=== PATIENT | male | born 1945 | race Caucasian/White ===

== ENCOUNTER 2016-08-04 06:10 | Day surgery (SDC) | payer MEDICARE ==
--- NOTE | ~2016-08-04 | EGD ---
EGD REPORT [facility] [address] [address] NAME: PRIYANKA LOPES : [birth year] STATUS : [place] [facility] [place] PAT#: [id number] AGE: 70 ADM/REG DATE : 08/04/16 MR#: [id number] REPORT SERV DATE: 08/04/16 DICTATED BY: KENDALL HERNANDEZ III DATE: 08/04/16 REPORT STATUS : Draft [facility]ANS[facility]IBED [facility]: [facility] DATE: 08/04/16 Endoscopy Center Patient Name: Priyanka Lopes Date of : 1945 Attending MD: KENDALL HERNANDEZ III, MD Procedure Date No Time: 08/04/2016 Procedure: Colonoscopy Indications: Iron deficiency anemia Referring MD: ROSITA HDZ Medicines: Propofol per Anesthesia Complications: No immediate complications. Procedure: Pre-Anesthesia Assessment: - ASA Grade Assessment: III - A patient with severe systemic disease. After I obtained informed consent, the scope was passed under direct vision. Throughout the procedure, the patient's blood pressure, pulse, and oxygen saturations were monitored continuously. The PCF [id number] was introduced through the anus and advanced to the cecum, identified by appendiceal orifice and ileocecal valve. The colonoscopy was performed with ease. The patient tolerated the procedure well. The quality of the bowel preparation was good. Findings: Four sessile polyps were found in the transverse colon. The polyps were 4 to 10 mm in size. These polyps were removed with a hot snare. Resection and retrieval were complete. These polyps were removed with a cold snare. Resection and retrieval were complete. These polyps were removed with a cold biopsy forceps. Resection and retrieval were complete for 3/4 polyps. A sessile polyp was found in the sigmoid colon. The polyp was 6 mm in size. The polyp was removed with a cold snare. Resection and retrieval were complete. Multiple diverticula were found in the sigmoid colon. External and internal hemorrhoids were found during retroflexion. Impression: - Four 4 to 10 mm polyps in the transverse colon. Resected and retrieved. - One 6 mm polyp in the sigmoid colon. Resected and retrieved. - Diverticulosis in the sigmoid colon. - External and internal hemorrhoids. Recommendation: - Patient has a contact number available for EGD REPORT [address] [address] NAME: PRIYANKA LOPES : [birth year] STATUS : [place] [facility] [place] PAT#: [id number] AGE: 70 ADM/REG DATE : 08/04/16 MR#: [id number] REPORT SERV DATE: 08/04/16 DICTATED BY: KENDALL HERNANDEZ III DATE: 08/04/16 REPORT STATUS : Draft TRANSCRIBED BY: [facility] DATE: 08/04/16 emergencies. The signs and symptoms of potential delayed complications were discussed with the patient. Return to normal activities tomorrow. Written discharge instructions were provided to the patient. - Discharge patient to home. - High fiber diet indefinitely. - Resume Xarelto (rivaroxaban) at prior dose in 3 days. - Await pathology results. Procedure Code(s): --- Professional --- 23195, Colonoscopy, flexible, proximal to splenic flexure; with removal of tumor(s), polyp(s), or other lesion(s) by snare technique Diagnosis Code(s): --- Professional --- D12.5, Benign neoplasm of sigmoid colon D12.3, Benign neoplasm of transverse colon K64.8, Other hemorrhoids K57.30, Diverticulosis of large intestine without perforation or abscess without bleeding D50.9, Iron deficiency anemia, unspecified CPT copyright 2013 [employer]. All rights reserved. The codes documented in this report are preliminary and upon bus greaser review may be revised to meet current compliance requirements. KENDALL HERNANDEZ III, MD 08/04/2016 8:12 AM This report has been signed electronically. Number of Addenda: 0 Note Initiated On: 08/04/2016 7:41 AM Scope Withdrawal Time 0 hours 13 minutes 1 second [id number] [place] [address]
--- NOTE | ~2016-08-04 | EGD ---
EGD REPORT [facility] [address] [address] NAME: PRIYANKA LOPES : [birth year] STATUS : REG [facility]#: [id number] AGE: 70 ADM/REG DATE : 08/04/16 MR#: [id number] REPORT SERV DATE: 08/04/16 DICTATED BY: KENDALL HERNANDEZ III DATE: 08/04/16 REPORT STATUS : Draft [facility]ANSCRIBED BY: [facility] DATE: 08/04/16 Endoscopy Center Patient Name: Priyanka Lopes Date of : 1945 Attending MD: KENDALL HERNANDEZ III, MD Procedure Date No Time: 08/04/2016 Procedure: Upper GI endoscopy Indications: Iron deficiency anemia Referring MD: ROSITA HDZ Medicines: Propofol per Anesthesia Complications: No immediate complications. Procedure: Pre-Anesthesia Assessment: - ASA Grade Assessment: III - A patient with severe systemic disease. After obtaining informed consent, the endoscope was passed under direct vision. Throughout the procedure, the patient's blood pressure, pulse, and oxygen saturations were monitored continuously. The GIF [id number] was introduced through the mouth, and advanced to the third part of duodenum. The upper GI endoscopy was accomplished with ease. The patient tolerated the procedure well. Findings: A non-obstructing Schatzki ring (acquired) was found at the gastroesophageal junction. A medium-sized hiatus hernia was present. The examined duodenum was normal. Using the endoscope, the video capsule enteroscope was advanced into the 2nd part of the duodenum. Impression: - Non-obstructing Schatzki ring. - Hiatus hernia. - Normal examined duodenum. - Successful completion of the Video Capsule Enteroscope placement. Recommendation: - Patient has a contact number available for emergencies. The signs and symptoms of potential delayed complications were discussed with the patient. Return to normal activities tomorrow. Written discharge instructions were provided to the patient. - Discharge patient to home. - Return to previous diet. - Follow an antireflux regimen. EGD REPORT [facility] [address] [place]. [address] NAME: PRIYANKA LOPES : [birth year] STATUS : REG [facility]#: [id number] AGE: 70 ADM/REG DATE : 08/04/16 MR#: [id number] REPORT SERV DATE: 08/04/16 DICTATED BY: KENDALL HERNANDEZ III DATE: 08/04/16 REPORT STATUS : Draft TRANSCRIBED BY: TUNJI DATE: 08/04/16 - Continue present medications. Procedure Code(s): --- Professional --- 51350, Esophagogastroduodenoscopy, flexible, transoral; diagnostic, including collection of specimen(s) by brushing or washing, when performed (separate procedure) Diagnosis Code(s): --- Professional --- K22.2, Esophageal obstruction K44.9, Diaphragmatic hernia without obstruction or gangrene D50.9, Iron deficiency anemia, unspecified CPT copyright 2013 [employer]. All rights reserved. The codes documented in this report are preliminary and upon university lecturer review may be revised to meet current compliance requirements. KENDALL HERNANDEZ III, MD 08/04/2016 8:27 AM This report has been signed electronically. Number of Addenda: 0 Note Initiated On: 08/04/2016 7:38 AM Scope Withdrawal Time 0 hours 0 minutes 0 seconds [id number] [place] [address]
[~2016-08-04 06:10] MED LIST: ALLEGRA180 PO; ARICEPT5 PO; ASAB PO; AVODART PO; CELLCEPT5 PO; CLARIT10 PO; CORDARONE PO; CRANBERRY JUICE PO; CYANO1000T PO; D 5000 PO; DEMA10T PO; DEMA20 PO; DIGITEK0.125 MG PO; ERYTHROMYCIN O3.5 G1 OPH; FLOMAX4 PO; FLONASE NAS; HALF81 PO; HUMULIN R1 ML SC; INSNOV7030 SC; INSULIN SC; JALYN 0.5-0.41 EACH PO; KEPPRA500 PO; KLOR-CON 1010 MEQ PO; KLOR-CON M1010 MEQ PO; KLOR-CON M2020 MEQ PO; L40 PO; LAN125 PO; LEVEMIR SC; LIPITOR80 MG PO; LOP25 PO; LOP50 PO; LYRICA100 MG PO; LYRICA50 PO; MAG OXIDE250 MG PO; METOLAZONE PO; MIRAPEX5 PO; MULTIVITAMI1 PO; NAMENXR28 PO; NASONEX NAS; NOVOLOG SC; OCEAN NAS; P10 PO; PERI-COLACE1 TAB PO; PLAVIX PO; PROAIR HFA INH; PROTONIX PO; PYRID60 PO; REFRESH OPH; REFRESH OPH SO0.3 ML OPH; REQUIP4 MG PO; RESTASIS OPH; ROMYCIN OPH; SENOKOTS PO; SENTAB PO; SINCR25100 PO; SYN.05 PO; T PO; TRESIBA FL100 UNIT/1 SC; ULTRA FRESH OPH; VITAMIN B-12 PO; VITAMIN D31000 UNIT PO; VITC500 PO; VOLTAREN1 % TOP; XARELTO15 MG PO; XARELTO20 MG PO; Z5 PO; ZOL50 PO; ZOLOFT25 MG PO; [UNRECOGNIZED DRUG - OTHER] OPH; [UNRECOGNIZED DRUG - OTHER] PO; [UNRECOGNIZED DRUG - OTHER] PO; [UNRECOGNIZED DRUG - OTHER] SC; [UNRECOGNIZED DRUG - REMARK] SC
== END 2016-08-04 23:59 | disposition home or self-care (01) ==
LOC: DMU 06:10
PROVIDERS: Internal Medicine Gastroenterology
PROC: 0DBL8ZZ Excision of Transverse Colon, Via Natural or Artificial Opening Endoscopic (ICD-10-PCS; principal; 2016-08-04 08:00)
PROC: 0DBN8ZZ Excision of Sigmoid Colon, Via Natural or Artificial Opening Endoscopic (ICD-10-PCS; 2016-08-04 08:00)
PROC: 0DJ07ZZ Inspection of Upper Intestinal Tract, Via Natural or Artificial Opening (ICD-10-PCS; 2016-08-04 08:00)
DX: D12.3 Benign neoplasm of transverse colon (principal); K63.5 Polyp of colon; K64.8 Other hemorrhoids; K57.30 Diverticulosis of large intestine without perforation or abscess without bleeding; K22.2 Esophageal obstruction; K44.9 Diaphragmatic hernia without obstruction or gangrene; G70.00 Myasthenia gravis without (acute) exacerbation; J44.9 Chronic obstructive pulmonary disease, unspecified; G47.33 Obstructive sleep apnea (adult) (pediatric); E11.9 Type 2 diabetes mellitus without complications; K21.9 Gastro-esophageal reflux disease without esophagitis; M19.90 Unspecified osteoarthritis, unspecified site; D50.9 Iron deficiency anemia, unspecified; I49.9 Cardiac arrhythmia, unspecified; I11.0 Hypertensive heart disease with heart failure; I50.9 Heart failure, unspecified; G25.81 Restless legs syndrome; F17.210 Nicotine dependence, cigarettes, uncomplicated; Z86.73 Personal history of transient ischemic attack (TIA), and cerebral infarction without residual deficits; Z99.89 Dependence on other enabling machines and devices; Z95.0 Presence of cardiac pacemaker; Z85.820 Personal history of malignant melanoma of skin; Z98.41 Cataract extraction status, right eye; Z98.42 Cataract extraction status, left eye; Z95.5 Presence of coronary angioplasty implant and graft; Z88.8 Allergy status to other drugs, medicaments and biological substances; Z88.5 Allergy status to narcotic agent; Z79.899 Other long term (current) drug therapy; Z79.52 Long term (current) use of systemic steroids; Z79.82 Long term (current) use of aspirin; Z79.4 Long term (current) use of insulin
CPT/HCPCS: 82962; 88305